=== PATIENT | male | born 1975 | race Caucasian/White ===

== ENCOUNTER → 2024-12-27 | Outpatient (CLI) | payer OTHER, SELFPAY ==
--- NOTE | 2024-12-27 08:15 | RAD_ITS ---
EXAM: XR Lumbosacral Spine, 2 or 3 Views CLINICAL INDICATION: SEGMENTAL AND SOMATIC DYSFUNCTION OF LUMBAR REGION TECHNIQUE: Frontal and lateral views of the lumbar spine and sacrum. COMPARISON: No relevant prior studies available. FINDINGS: VERTEBRAE: Mild facet arthropathy of L for the S1. Mild endplate degenerative changes of L1 and L2. No acute fracture. Normal alignment. SACRUM/COCCYX: Unremarkable as visualized. No acute fracture. DISC SPACES: No acute findings. No significant narrowing. SOFT TISSUES: Unremarkable. RAD/L/S Spine Min 4 Views IMPRESSION: Degenerative changes as above. [facility]
--- NOTE | 2024-12-27 08:15 | RAD_ITS ---
PROCEDURE: THORACIC SPINE 3 VIEWS 12/27/2024 REASON FOR EXAM: SEGMENTAL AND SOMATIC DYSFUNCTION OF LUMBAR REGION TECHNIQUE: THORACIC SPINE 3 VIEWS COMPARISON: None FINDINGS: Diffuse anterior longitudinal ligament calcifications,suggesting DISH The vertebral alignment is maintained with no spondylolisthesis visualized. No evidence of vertebral body fracture. Intervertebral disc spaces are reduced and facet joint arthropathy. No scoliosis seen. Degenerative osteophytes seen. Normal paravertebral soft tissue densities noted. RAD/Thoracic Spine 3 Views IMPRESSION: Thoracic spondylosis. IMPRESSION: Thoracic spondylosis. Diffuse anterior longitudinal ligament calcifications,suggesting DISH [facility]
== END | disposition home or self-care (01) ==
PROVIDERS: PCP Physician Assistant Medical; Referring Provider Chiropractor Orthopedic; Visit Provider Chiropractor Orthopedic
DX: M99.03 Segmental and somatic dysfunction of lumbar region (principal)
CPT/HCPCS: 72072; 72110